=== PATIENT | female | born 1995 | race Caucasian/White ===

== ENCOUNTER 2024-05-18 14:33 | Inpatient (IN) | payer MEDICAID ==
[2024-05-18] MEDS ORDERED: Butorphanol 2 MG/ML SDV IVPUSH PRN (14:46)
[2024-05-18] MEDS ORDERED: Sodium Chloride 0.9% 2.5 ML Syringe FLUSH PRN (14:46)
[2024-05-18] MEDS ORDERED: Sodium Chloride 0.9% 10 ML Syringe FLUSH PRN (14:46)
[2024-05-18] MEDS ORDERED: Sodium Chloride 0.9% 20 ML SDV IV PRN (14:46)
[2024-05-18] MEDS ORDERED: Water For Irrigation,Sterile 1,000 ML Container IRR PRN (14:46)
[2024-05-18] MEDS ORDERED: Tranexamic Acid in NACL,ISO-OS 1,000 MG in Premix Bag 1 BAG IV PRN (14:46)
[2024-05-18] MEDS ORDERED: Ondansetron 4 MG/2 ML SDV IVPUSH PRN (14:46)
[2024-05-18] MEDS ORDERED: Lidocaine 1% 50 ML MDV INJECT PRN (14:46)
[2024-05-18] MEDS ORDERED: Misoprostol 200 MCG Tab PO PRN (14:46)
[2024-05-18] MEDS ORDERED: Methylergonovine 0.2 MG/1 ML Amp IM PRN (14:46)
[2024-05-18] MEDS ORDERED: Terbutaline 1 MG/ML SDV SUBCUT PRN (14:46)
[2024-05-18] MEDS ORDERED: Carboprost Tromethamine 250 MCG/1 mL Vial IM PRN (14:46)
[2024-05-18] MEDS ORDERED: Oxytocin/0.9 % Sodium Chloride 30 UNIT/500 ML BAG IV SCH (15:00)
[2024-05-18] MEDS: Lactated Ringers 1,000 ML IV SCH (15:17)
[2024-05-18] MEDS: Ampicillin 2 GM in Sodium Chloride 0.9% 100 ML IV ONE (15:19)
[2024-05-18] MEDS: Misoprostol 25 MCG (1/4 of 100 MCG) Tab VAG PRN (15:23)
[2024-05-18 15:30] LABS: HEMATOCRIT 34.1 % (37.0-47.0); HEMOGLOBIN 11.4 g/dL (12.0-16.0); MEAN CORPUSCULAR HEMOGLOBIN 25.7 pg (28.0-32.0); MEAN CORPUSCULAR HGB CONC 33.4 g/dL (32.0-36.0); MEAN CORPUSCULAR VOLUME 76.8 fL (83.0-99.0); MEAN PLATELET VOLUME 9.2 fL (9.4-12.3); PLATELET COUNT,PLT 217 K/uL (150-400); RED BLOOD CELL COUNT 4.44 M/uL (4.10-5.30); WHITE BLOOD CELL COUNT,WBC 9.19 K/uL (3.9-11.3)
[2024-05-18] MEDS ORDERED: ePHEDrine 50 MG/ML SDV IVPUSH PRN (15:55)
[2024-05-18] MEDS ORDERED: Phenylephrine HCl In 0.9% NaCl 1 MG/10 ML Syringe IVPUSH PRN (15:55)
[2024-05-18] MEDS ORDERED: dexmedeTOMIDine HCl 200 MCG/2 ML SDV EPIDUR SCH (16:00)
[2024-05-18 17:07] LABS: ALBUMIN 2.3 g/dL (3.4-5.0); BILIRUBIN TOTAL 0.2 mg/dL (0.2-1.0); CALCIUM 8.8 mg/dL (8.5-10.1); CARBON DIOXIDE,CO2 18.8 mmol/L (21.0-32.0); CREATININE 0.8 mg/dL (0.6-1.0); EST CRCL DRUG DOSING (CG) 94.21 mL/min; POTASSIUM,K 3.7 mmol/L (3.5-5.1); PROTEIN TOTAL,TP 6.5 g/dL (6.4-8.2)
[2024-05-18 17:19] LABS: A/G RATIO 0.6 (0.9-1.6)
[2024-05-18] MEDS: Ampicillin 1 GM in Sodium Chloride 0.9% 50 ML IV SCH (19:28)
[2024-05-19] MEDS: Oxytocin/0.9 % Sodium Chloride 30 UNIT/500 ML BAG IV SCH (19:57)
[2024-05-19] MEDS: Ropivacaine HCl/PF 400 MG in Premix Bag 1 BAG EPIDUR SCH (20:42)
[2024-05-20] MEDS ORDERED: Lidocaine 2% with EPINEPHrine 1:200,000 20 ML SDV ONE (09:37)
[2024-05-20] MEDS ORDERED: Bupivacaine 0.25% 30 ML SDV ONE (11:09)
[2024-05-20] MEDS ORDERED: Misoprostol 200 MCG Tab PO PRN (18:07)
[2024-05-20 19:33] LABS: PH,UMBILICAL ARTERIAL 7.258 (7.18-7.38); PH,UMBILICAL VENOUS 7.342 (7.25-7.45)
[2024-05-20] MEDS: Ibuprofen 800 MG Tab PO PRN (21:01)
[2024-05-20] MEDS: Acetaminophen 500 MG Tab PO PRN (21:02)
[2024-05-20] MEDS: Docusate Sodium 100 MG Cap PO PRN (21:03)
[2024-05-20] MEDS: Benzocaine/Menthol 20%-0.5% Spray 78 GM Cannister TOP PRN (21:04)
[2024-05-20] MEDS: Witch Hazel Medicated Pads 40/Jar TOP PRN (21:04)
[2024-05-20] MEDS: Lanolin 100% Cream 7 GM Tube TOP PRN (21:05)
[2024-05-21 06:45] LABS: HEMOGLOBIN 9.6 g/dL (12.0-16.0); MEAN CORPUSCULAR HEMOGLOBIN 25.1 pg (28.0-32.0); MEAN CORPUSCULAR VOLUME 78.5 fL (83.0-99.0); MEAN PLATELET VOLUME 9.6 fL (9.4-12.3); PLATELET COUNT,PLT 160 K/uL (150-400); RED BLOOD CELL COUNT 3.82 M/uL (4.10-5.30); WHITE BLOOD CELL COUNT,WBC 6.33 K/uL (3.9-11.3)
[2024-05-21] MEDS: Ferrous Sulfate 325 MG Tab PO SCH (08:33)
[2024-05-21] MEDS: Prenatal Multivitamin with Calcium/Folic Acid/Iron Tab PO SCH (08:33)
== END 2024-05-22 18:07 | disposition home or self-care (01) | DRG 807 ==
LOC: MW.OB 14:33 → OBSVTOIN 05-20 18:35 → MW.OB 05-20 21:37
PROVIDERS: ADMIT Obstetrics & Gynecology; ATTEND Obstetrics & Gynecology
PROC: 10E0XZZ Delivery of Products of Conception, External Approach (ICD-10-PCS; principal; 2024-05-20)
PROC: 0KQM0ZZ Repair Perineum Muscle, Open Approach (ICD-10-PCS; 2024-05-20)
PROC: 10907ZC Drainage of Amniotic Fluid, Therapeutic from Products of Conception, Via Natural or Artificial Opening (ICD-10-PCS; 2024-05-20)
PROC: 3E033VJ Introduction of Other Hormone into Peripheral Vein, Percutaneous Approach (ICD-10-PCS; 2024-05-20)
PROC: 3E0R3BZ Introduction of Anesthetic Agent into Spinal Canal, Percutaneous Approach (ICD-10-PCS; 2024-05-20)
PROC: 00HU33Z Insertion of Infusion Device into Spinal Canal, Percutaneous Approach (ICD-10-PCS; 2024-05-20)
DX: O26.643 Intrahepatic cholestasis of pregnancy, third trimester (principal); Z37.0 Single live birth; O99.02 Anemia complicating childbirth; E78.79 Other disorders of bile acid and cholesterol metabolism; K76.89 Other specified diseases of liver; O99.824 Streptococcus B carrier state complicating childbirth; O69.1XX0 Labor and delivery complicated by cord around neck, with compression, not applicable or unspecified; O70.1 Second degree perineal laceration during delivery
CPT/HCPCS: 01967; 36415; 51702; 59025; 59409; 80053; 82803; 85027; 86592; 86850; 86900; 86901; A9270-GY; J0290; J0665; J2590; J2795; J3490; J7120

== ENCOUNTER 2025-02-04 14:23 | Day surgery (SDC) | payer MEDICAID ==
[2025-02-04] MEDS: Ondansetron 4 MG/2 ML SDV IVPUSH ONE ×2 (14:45→14:46)
[2025-02-04 14:46] LABS: BASOPHILS ABSOLUTE AUTO 0.04 K/uL (0.00-0.20); BASOPHILS PERCENT AUTO 0.3 % (0.0-1.0); EOSINOPHILS ABSOLUTE AUTO 0.02 K/uL (0.00-0.45); EOSINOPHILS PERCENT AUTO 0.1 % (0.0-6.0); IMMATURE GRAN ABSOLUTE AUTO 0.04 K/uL (0.00-0.05); IMMATURE GRAN PERCENT AUTO 0.3 % (0.0-0.4); LYMPHOCYTES ABSOLUTE AUTO 1.10 K/uL (1.00-4.80); LYMPHOCYTES PERCENT AUTO 7.1 % (24.0-44.0); MEAN PLATELET VOLUME 8.8 fL (9.4-12.3); MONOCYTES ABSOLUTE AUTO 1.33 K/uL (0.00-0.80); MONOCYTES PERCENT AUTO 8.6 % (0.0-8.0); NEUTROPHILS ABSOLUTE AUTO 12.95 K/uL (1.80-7.70); NEUTROPHILS PERCENT AUTO 83.6 % (41.0-71.0); NRBC ABSOLUTE 0.00 K/uL (0.00-0.02); NRBC PERCENT 0.0 /100WBC (0.0-0.2); PLATELET COUNT,PLT 252 K/uL (150-400); RED BLOOD CELL COUNT 4.77 M/uL (4.10-5.30); WHITE BLOOD CELL COUNT,WBC 15.48 K/uL (3.9-11.3)
[2025-02-04] MEDS: Ondansetron 4 MG/2 ML SDV ONE ×2 (14:46→15:02)
[2025-02-04] MEDS ORDERED: fentaNYL 250 MCG/5 ML SDV ONE (15:16)
[2025-02-04] MEDS ORDERED: propofoL 500 MG/50 ML 50 ML ONE (15:16)
[2025-02-04] MEDS ORDERED: Propofol 200 MG/20 ML SDV ONE (15:16)
[2025-02-04 15:29] LABS: A/G RATIO 0.8 (0.9-1.6); ALANINE AMINOTRANSFERASE,ALT 23.0 IU/L (14-63); ASPARTATE AMNIOTRANSFERASE,AST 17.0 IU/L (15-37); BILIRUBIN TOTAL 0.3 mg/dL (0.2-1.0); BLOOD UREA NITROGEN,BUN 9.0 mg/dL (7.0-18.0); CARBON DIOXIDE,CO2 25.7 mmol/L (21.0-32.0); CHLORIDE,CL 101.0 mmol/L (98-107); CREATININE 0.7 mg/dL (0.6-1.0); EST CRCL DRUG DOSING (CG) 116.35 mL/min; GLUCOSE RANDOM 173.0 mg/dL (74-106); POTASSIUM,K 3.4 mmol/L (3.5-5.1); PROTEIN TOTAL,TP 7.3 g/dL (6.4-8.2); SODIUM,NA 136.0 mmol/L (136-145)
[2025-02-04 15:51] LABS: ESTIMATED GFR 121.0 mL/min (>60); HCG QUANTITATIVE 35198.0 mIU/mL
[2025-02-04] MEDS ORDERED: Succinylcholine/Sod PF 100 MG/5 ML SYRINGE IV ONE (16:04)
[2025-02-04] MEDS ORDERED: Dexamethasone 4 MG/ML 5 ML MDV ONE (16:08)
[2025-02-04] MEDS ORDERED: Ondansetron 4 MG/2 ML SDV ONE (16:08)
[2025-02-04] MEDS ORDERED: Ketorolac 30 MG/ML SDV ONE (16:08)
[2025-02-04] MEDS ORDERED: Promethazine 25 MG/ML SDV IM PRN (16:47)
[2025-02-04] MEDS ORDERED: Ketorolac 30 MG/ML SDV IVPUSH PRN (16:47)
[2025-02-04] MEDS ORDERED: Acetaminophen/oxyCODONE 325-5 MG Tab PO PRN (16:47)
[2025-02-04] MEDS ORDERED: Ondansetron 4 MG/2 ML SDV IVPUSH PRN (16:47)
[2025-02-04] MEDS ORDERED: diphenhydrAMINE 50 MG/ML SDV IVPUSH PRN (17:16)
[2025-02-04] MEDS: Ketorolac 30 MG/ML SDV IVPUSH ONE (17:49)
[2025-02-04] MEDS: Acetaminophen/oxyCODONE 325-5 MG Tab PO PRN (18:45)
[2025-02-04 21:17] LABS: BASOPHILS ABSOLUTE AUTO 0.01 K/uL (0.00-0.20); BASOPHILS PERCENT AUTO 0.1 % (0.0-1.0); EOSINOPHILS ABSOLUTE AUTO 0.00 K/uL (0.00-0.45); EOSINOPHILS PERCENT AUTO 0.0 % (0.0-6.0); IMMATURE GRAN ABSOLUTE AUTO 0.02 K/uL (0.00-0.05); IMMATURE GRAN PERCENT AUTO 0.3 % (0.0-0.4); LYMPHOCYTES ABSOLUTE AUTO 0.48 K/uL (1.00-4.80); LYMPHOCYTES PERCENT AUTO 6.4 % (24.0-44.0); MEAN PLATELET VOLUME 9.0 fL (9.4-12.3); MONOCYTES ABSOLUTE AUTO 0.23 K/uL (0.00-0.80); MONOCYTES PERCENT AUTO 3.1 % (0.0-8.0); NEUTROPHILS ABSOLUTE AUTO 6.74 K/uL (1.80-7.70); NEUTROPHILS PERCENT AUTO 90.1 % (41.0-71.0); NRBC ABSOLUTE 0.00 K/uL (0.00-0.02); NRBC PERCENT 0.0 /100WBC (0.0-0.2); PLATELET COUNT,PLT 211 K/uL (150-400); RED BLOOD CELL COUNT 3.80 M/uL (4.10-5.30); WHITE BLOOD CELL COUNT,WBC 7.48 K/uL (3.9-11.3)
== END 2025-02-04 22:15 | disposition home or self-care (01) ==
LOC: MW.ED 14:23 → MW.SDS 14:55 → MW.OB 17:34 → MW.SDS 22:15
PROVIDERS: ATTEND Obstetrics & Gynecology
DX: O03.4 Incomplete spontaneous abortion without complication (principal); J45.20 Mild intermittent asthma, uncomplicated; Z90.49 Acquired absence of other specified parts of digestive tract; Z79.899 Other long term (current) drug therapy
CPT/HCPCS: 36415; 36430; 59812; 76801; 76817; 80053; 84702; 85025; 86850; 86900; 86901; 86920; 96374; 96375; 99285; A9270; C1729; J0330; J0690; J1100; J1308; J1885; J2405; J2704; J3010; P9016; 01965; 99284; J1171